=== PATIENT | male | born 1995 | race American Indian/Alaskan Native ===

== ENCOUNTER 2017-06-23 11:22 | Emergency (ER) | payer OTHER ==
[2017-06-23 12:00] VITALS: BP 133/58
--- NOTE | 2017-06-23 13:42 | Emergency Department Report ---
Eye Injury/Foreign Body - HPI Duration: 4 Days Eye Location: Right Severity: Mild Tetanus Status: Up to Date Eye Symptoms: Eye Pain: Yes, Blurred Vision: Yes, Eye Redness: Yes, Grinding/ Hammering Metal: No, Used Eye Protection: No, Contact Lens Use: No, Recalls Injury: No, Photophobia: No Other History: 22-year-old male past medical history none presents with complaint of right eye irritation and redness status post a hose hitting his right eye briefly approximately 5 days ago. Patient denies blurry vision but does state that his right eye has been irritated since the incident. Denies any other injuries. States that he has increased watery drainage from right eye. Denies headache denies any other injuries. Unsure of tetanus vaccine status. ED Review of Systems ROS: Stated complaint: RIGHT EYE INJURY Other details as noted in HPI Constitutional: denies: chills, fever Eyes: eye pain. denies: eye discharge, vision change ENT: denies: ear pain, throat pain Respiratory: denies: cough, shortness of breath, wheezing Cardiovascular: denies: chest pain, palpitations Endocrine: no symptoms reported Gastrointestinal: denies: abdominal pain, nausea, diarrhea Genitourinary: denies: urgency, dysuria Musculoskeletal: denies: back pain, joint swelling, arthralgia Skin: denies: rash, lesions Neurological: denies: headache, weakness, paresthesias Psychiatric: denies: anxiety, depression Hematological/Lymphatic: denies: easy bleeding, easy bruising ED Past Medical Hx - Past Medical History Previous Medical History?: No - Surgical History Past Surgical History?: No - Social History Smoking Status: Never Smoker Substance Use Type: None - Medications Home Medications: Home Medications Medication Instructions Recorded Confirmed Last Taken Type Glycerin/Propylene Glycol 1 drop OP Q4H PRN #1 drops 06/23/17 Unknown Rx [Artificial Tears Drops] Ibuprofen [Motrin] 600 mg PO Q8H PRN #30 tablet 06/23/17 Unknown Rx Tobramycin 0.3% [Tobrex] 1 drop OD Q4H #1 bottle 06/23/17 Unknown Rx Eye Injury Exam - Exam General: Vital signs noted. No distress. Alert and acting appropriately. - Visual Acuity Right Vision Acuity Degree: 20/20 Eye Exam: Left Fluorescein Uptake (small amount of fluorescein uptake in the lower region of conjunctiva near inner eyelid. negative sediel sign), Right Injection, Right Chemosis, Right Photophobia, Both EOMI ED Course Vital Signs 06/23/17 11:58 Temperature 98.3 F Pulse Rate 54 L Respiratory 16 Rate Blood Pressure 133/58 O2 Sat by Pulse 100 Oximetry ED Medical Decision Making - Medical Decision Making A/P: Right corneal abrasion 1-TDap updated today 2-Motrin 600mg when necessary 3-artificial tears, tobramycin drops 4- follow-up with ophthalmology 5- visual acuity 20/20 bilaterally,IOP 16LE, IOP 17 RE Critical care attestation.: If time is entered above; I have spent that time in minutes in the direct care of this critically ill patient, excluding procedure time. ED Disposition Clinical Impression: Corneal abrasion Qualifiers: Encounter type: initial encounter Laterality: right Qualified Code(s): S05.01XA - Injury of conjunctiva and corneal abrasion without foreign body, right eye, initial encounter Disposition: TO HOME OR SELFCARE Is pt being admited?: No Does the pt Need Aspirin: No Condition: Stable Instructions: Corneal Abrasion (ED) Prescriptions: Glycerin/Propylene Glycol [Artificial Tears Drops] 1 drop OP Q4H PRN #1 drops PRN Reason: Dry Eye(S) Ibuprofen [Motrin] 600 mg PO Q8H PRN #30 tablet PRN Reason: Pain Tobramycin 0.3% [Tobrex] 1 drop OD Q4H #1 bottle Referrals: WILMAN PAYNE MD [Staff Physician] - 3-5 Days FRANK ALMENDAREZ MD [Staff Physician] - 3-5 Days Forms: Accompanied Note, Work/School Release Form(ED) Time of Disposition: 14:09
[2017-06-23] MEDS ORDERED: FUL-GLO OP ONE (13:45)
[2017-06-23] MEDS ORDERED: MOTRIN PO ONE (13:45)
[2017-06-23] MEDS ORDERED: BOOSTRIX IM ONE (14:03)
== END 2017-06-23 14:34 | disposition home or self-care (01) ==
LOC: ED 11:22
DX: S05.01XA Injury of conjunctiva and corneal abrasion without foreign body, right eye, initial encounter (principal); W22.8XXA Striking against or struck by other objects, initial encounter; Y93.89 Activity, other specified; Y92.89 Other specified places as the place of occurrence of the external cause; Y99.8 Other external cause status
CPT/HCPCS: 90471; 90715; 99283